=== PATIENT | female | born 1970 | race Caucasian/White ===

== ENCOUNTER 2023-05-06 07:07 | Emergency (ER) | payer BC, OTHER ==
[~2023-05-06] VITALS: Ht 162.6 cm; Wt 78.5 kg
[2023-05-06 07:09] VITALS: O2SAT 99
[2023-05-06] MEDS ORDERED: LISI2.5T14 PO (07:13)
[2023-05-06] MEDS ORDERED: HYDR25TA4 PO (07:13)
[2023-05-06] MEDS ORDERED: LABE100T5 PO (07:13)
[2023-05-06] MEDS ORDERED: CYCLOBENZAPRINE HCL 10 MG TABLET ONE (07:41)
[2023-05-06] MEDS ORDERED: KETOROLAC TROMETHAMINE 30 MG INJ ONE (07:41)
[2023-05-06] MEDS ORDERED: MORPHINE SULFATE 4 MG/1 ML DISP.SYRIN ONE (07:42)
[2023-05-06] MEDS ORDERED: CYCLOBENZAPRINE HCL 10 MG TABLET PO ONE (07:45)
[2023-05-06] MEDS ORDERED: KETOROLAC TROMETHAMINE 30 MG INJ IM ONE (07:45)
[2023-05-06] MEDS ORDERED: MORPHINE SULFATE 4 MG/1 ML DISP.SYRIN IM ONE (07:45)
[2023-05-06] MEDS ORDERED: IBUP-1955 PO (08:21)
[2023-05-06] MEDS ORDERED: HYDR-3974 PO (08:21)
[2023-05-06] MEDS ORDERED: LIDO30AD10 TP (08:21)
[2023-05-06] MEDS ORDERED: CYCL5TAB PO (08:21)
[2023-05-06 08:35] VITALS: BP 152/95
== END 2023-05-06 08:36 | disposition home or self-care (01) ==
LOC: ER 07:09
DX: M54.50 Low back pain, unspecified (principal); M62.830 Muscle spasm of back; I10 Essential (primary) hypertension; Z79.1 Long term (current) use of non-steroidal anti-inflammatories (NSAID); Z79.899 Other long term (current) drug therapy
CPT/HCPCS: 99284; 96372 ×2; J1885; J2270; A4663